=== PATIENT | male | born 1940 | race Caucasian/White ===

== ENCOUNTER 2016-08-05 13:10 | Emergency (ER) | payer MEDICARE, MEDICAID ==
[~2016-08-05] VITALS: Ht 162.6 cm; Wt 70.0 kg
[2016-08-05 13:18] VITALS: Ht 162.6 cm; Wt 70.0 kg
[2016-08-05] MEDS ORDERED: LIDOCAINE 2% (MDV) 20 ML INJ INJ ONE (15:30)
[2016-08-05] MEDS ORDERED: ACETAMINOPHEN 500 MG TAB PO STA (15:34)
[2016-08-05] MEDS ORDERED: ACET500C5 PO (15:39)
[2016-08-05] MEDS ORDERED: SULF1TAB31 PO (15:39)
[2016-08-05] MEDS ORDERED: CEPH-443 PO (15:39)
--- NOTE | 2016-08-05 18:19 | ERD ---
ER Documentation Chief Complaint Date/Time DATE: 08/05/16 TIME: 18:12 Chief Complaint Pt with abscess Jose Miguel chest x 8 days. No fevers. HPI This 75-year-old male who presents to the emergency department today with some pain and swelling and area of infection on the left side of his chest. Patient states it has been like this for the past 8 days. States he saw his primary care doctor and was given mupirocin cream but it has not helped. States there has been some pus drainage. States he has a history of plastic valve replacement in 2015. States that there was some sutures left in that area and patient did return in follow-up to have the sutures removed and then they could not be found. Denies any fevers or chills. ROS All systems reviewed and are negative except as per history of present illness. Medications Home Meds Active Scripts Sulfamethoxazole/Trimethoprim* (Bactrim Ds* Tablet) 1 Each Tablet, 1 TAB PO BID for 7 Days, #14 TAB Prov:SHANTANU BUNN PA-C 08/05/16 Cephalexin* (Keflex*) 500 Mg Capsule, 500 MG PO QID for 7 Days, CAP Prov:SHANTANU BUNN PA-C 08/05/16 Acetaminophen* (Tylophen*) 500 Mg Capsule, 1 CAP PO Q6H Y for PAIN AND OR ELEVATED TEMP, #30 CAP Prov:SHANTANU BUNN PA-C 08/05/16 Reported Medications [None] No Conflict Check 12/08/09 Allergies Allergies: Coded Allergies: No Known Drug Allergies (Verified Allergy, Mild, 12/08/09) PMhx/Soc History of Surgery: No Anesthesia Reaction: No Hx Neurological Disorder: No Hx Psychiatric Problems: No Hx Miscellaneous Medical Probl: No Hx Alcohol Use: No Hx Substance Use: No Hx Tobacco Use: No Smoking Status: Never smoker Physical Exam Vitals Vital Signs Date Time Temp Pulse Resp B/P Pulse Ox O2 Delivery O2 Flow Rate FiO2 08/05/16 13:18 98.3 92 18 111/63 96 Physical Exam Const: NAD Head: Atraumatic Eyes: Normal Conjunctiva ENT: Normal External Ears, Nose and Mouth. Neck: Full range of motion..~ No meningismus. Resp: Clear to auscultation bilaterally Cardio: Regular rate and rhythm, no murmurs Abd: Soft, non tender, non distended. Normal bowel sounds Skin: Large incisional scar over anterior chest. Area of abscess approximately 4 cm with firmness and induration and evidence of crusting. Localized erythema. No warmth. Back: No midline or flank tenderness Ext: No cyanosis, or edema Neur: Awake and alert Psych: Normal Mood and Affect Results 24 hrs Current Medications Medications (Trade) Dose Ordered Sig/Kimberlee Route PRN Reason Start Time Stop Time Status Last Admin Dose Admin Lidocaine (Xylocaine 2% (Mdv) 20 ml) 20 ml ONCE ONCE INJ 08/05/16 15:30 08/05/16 15:31 DC Acetaminophen (Tylenol Tab) 500 mg ONCE STAT PO 08/05/16 15:34 08/05/16 15:35 DC 08/05/16 15:49 Procedures/MDM This is a 75-year-old male who presents the emergency department today for concerns of an abscess on the left side of his chest. On physical exam patient has approximately 4 cm area of firmness and induration with a small area of opening and crusting. Patient is afebrile and otherwise well-appearing. I did explain to the patient that I need to unroofed the area which I did with an 18- gauge needle. The area was prepped in the usual sterile fashion the patient tolerated the procedure well. After removing the crust that was on the patient' s abscess I did apply direct from pressure a moderate amount of purulent drainage was removed. At that time I did take to make a bigger incision with an 11 blade scalpel after the patient was given local anesthesia. Abscess Incision and Drainage with irrigation by me: Location: Left side of chest/abdomen Anesthesia: [Local 1% Lidocaine] 2 cc Technique: [Irrigated. Disrupted loculations w/ instrumentation ] Packing: [None] Complications: [Neurovascularly intact post procedure] 48 hour wound check. Scar minimization instructions given. Patient's skin symptoms have stabilized while they have been evaluated in the department and are appropriate for outpatient care and work up. Patient is afebrile and otherwise well-appearing exam and w/u not consistent w/ sepsis, deep space infection, or foreign body. She was given Tylenol here in the emergency department. He will be given a prescription for home. He was given a prescription for Keflex and Bactrim. At this time the patient is stable for discharge and outpatient management. Patient should follow up with their PCP in the next 1-2 days. They may return to the emergency department sooner for any persistent or worsening of symptoms. Patient understood and agreed with the plan. Discussed the patient with Dr. Andrade and he is in agreement with the plan. Departure Diagnosis: Primary Impression: Abscess Condition: Fair Patient Instructions: Abscess, Incision And Drainage Referrals: Ginny Morrison Additional Instructions: Llame al doctor CINTHYA y adelso isela SHOLA PARA DENTRO DE 1-2 GALVEZ.Dgale a la secretaria que nosotros le instruimos hacer esta shola.Avise o llame si mayo condicin se empeora antes de la shola. Regresa aqui si peor o no mejor. Wound check In 48 hours Take antibiotics as prescribed Take Tylenol or Motrin for pain SHANTANU BUNN PA-C Aug 05, 2016 18:19
== END 2016-08-05 15:55 | disposition home or self-care (01) ==
LOC: FTE 13:10
DX: L02.213 Cutaneous abscess of chest wall (principal)

== ENCOUNTER 2016-08-07 13:08 | Emergency (ER) | payer OTHER ==
[~2016-08-07] VITALS: Ht 157.5 cm; Wt 70.5 kg
[~2016-08-07 13:08] MED LIST: ACET500C5 PO; CEPH-443 PO; SULF1TAB31 PO
[2016-08-07 13:11] VITALS: Ht 157.5 cm; Wt 70.5 kg
--- NOTE | 2016-08-07 14:13 | ERD ---
ER Documentation Chief Complaint Date/Time DATE: 08/07/16 TIME: 14:11 Chief Complaint Recheck abscess top chest wall HPI Patient is a 75-year-old male who is here for a 2 day wound check for an abscess on his chest wall. He is taking the antibiotics as prescribed and he states his pain and symptoms are improving. He has no fever. No other complaints. ROS All systems reviewed and are negative except as per history of present illness. Medications Home Meds Active Scripts Sulfamethoxazole/Trimethoprim* (Bactrim Ds* Tablet) 1 Each Tablet, 1 TAB PO BID for 7 Days, #14 TAB Prov:SHANTANU BUNN PA-C 08/05/16 Cephalexin* (Keflex*) 500 Mg Capsule, 500 MG PO QID for 7 Days, CAP Prov:SHANTANU BUNN PA-C 08/05/16 Acetaminophen* (Tylophen*) 500 Mg Capsule, 1 CAP PO Q6H Y for PAIN AND OR ELEVATED TEMP, #30 CAP Prov:SHANTANU BUNN PA-C 08/05/16 Reported Medications [None] No Conflict Check 12/08/09 Allergies Allergies: Coded Allergies: No Known Drug Allergies (Verified Allergy, Mild, 12/08/09) PMhx/Soc History of Surgery: No Anesthesia Reaction: No Hx Neurological Disorder: No Hx Psychiatric Problems: No Hx Miscellaneous Medical Probl: No Hx Alcohol Use: No Hx Substance Use: No Hx Tobacco Use: No Smoking Status: Never smoker FmHx Family History: diabetes Physical Exam Vitals Vital Signs Date Time Temp Pulse Resp B/P Pulse Ox O2 Delivery O2 Flow Rate FiO2 08/07/16 13:11 98.3 56 20 97/52 98 Physical Exam Const: [] Head: Atraumatic Eyes: Normal Conjunctiva ENT: Normal External Ears, Nose and Mouth. Neck: Full range of motion..~ No meningismus. Resp: Clear to auscultation bilaterally Cardio: Regular rate and rhythm, no murmurs Abd: Soft, non tender, non distended. Normal bowel sounds Skin: Healing abscess on the anterior lower chest wall approximately 2 cm in diameter, no surrounding erythema, no bleeding or drainage Procedures/MDM Patient is here for wound check. Wound is healing appropriately. It was redressed and bandaged here. Recommended he continue to take the antibiotics as prescribed and return if he has any new or worsening symptoms. Recommended this patient follow up with her primary care doctor within 48 hours or return to the emergency room for any worsening of symptoms. However this time I do believe there is suitable for outpatient management. I answered all their questions and they agreed with the plan and were discharged home. Departure Diagnosis: Primary Impression: Visit for wound check Condition: Stable Patient Instructions: Wound Care Additional Instructions: Llame al doctor CINTHYA y adelso isela SHOLA PARA DENTRO DE 1-2 GALVEZ.Dgale a la secretaria que nosotros le instruimos hacer esta shola.Avise o llame si mayo condicin se empeora antes de la shola. Regresa aqui si peor o no mejor. MICHELLE KATZ PA-C Aug 07, 2016 14:13
== END 2016-08-07 14:16 | disposition home or self-care (01) ==
LOC: FTE 13:08
DX: Z48.01 Encounter for change or removal of surgical wound dressing (principal)
CPT/HCPCS: 99281

== ENCOUNTER 2016-08-11 15:29 | Emergency (ER) | payer OTHER ==
[~2016-08-11] VITALS: Ht 152.4 cm; Wt 78.2 kg
[2016-08-11 15:30] VITALS: Ht 152.4 cm; Wt 78.2 kg
--- NOTE | 2016-08-14 08:07 | ERA ---
ER Documentation Chief Complaint Date/Time DATE: 08/14/16 TIME: 08:04 Chief Complaint WOUND CHECK S/P ANCESS UPPER CHEST HPI This is a 75-year-old male status post cardiac surgery on September 12 presenting with a chief complaint of suture sticking out the skin. [place]er-speaking. 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 Patient is currently on antibiotics. Denies any other complications including fever, chills, headache, chest pain, shortness of breath, discharge, continued pain, changes in sensation or skin color, or loss of motion. Previous notes have been reviewed and are consistent with the patient's history given. Patient's tetanus status is up-to-date. ROS All systems reviewed and are negative except as per history of present illness. Medications Home Meds Active Scripts Sulfamethoxazole/Trimethoprim* (Bactrim Ds* Tablet) 1 Each Tablet, 1 TAB PO BID for 7 Days, #14 TAB Prov:SHANTANU BUNN PA-C 08/05/16 Cephalexin* (Keflex*) 500 Mg Capsule, 500 MG PO QID for 7 Days, CAP Prov:SHANTANU BUNN PA-C 08/05/16 Acetaminophen* (Tylophen*) 500 Mg Capsule, 1 CAP PO Q6H Y for PAIN AND OR ELEVATED TEMP, #30 CAP Prov:SHANTANU BUNN PA-C 08/05/16 Reported Medications [None] No Conflict Check 12/08/09 Allergies Allergies: Coded Allergies: No Known Drug Allergies (Verified Allergy, Mild, 12/08/09) PMhx/Soc History of Surgery: No Anesthesia Reaction: No Hx Neurological Disorder: No Hx Psychiatric Problems: No Hx Miscellaneous Medical Probl: No Hx Alcohol Use: No Hx Substance Use: No Hx Tobacco Use: No Physical Exam Vitals Vital Signs Date Time Temp Pulse Resp B/P Pulse Ox O2 Delivery O2 Flow Rate FiO2 08/11/16 15:30 97.7 68 20 127/60 99 Physical Exam Const: Well-appearing 75-year-old male Head: Atraumatic Eyes: Normal Conjunctiva ENT: Normal External Ears, Nose and Mouth. Neck: Full range of motion..~ No meningismus. Resp: Clear to auscultation bilaterally Cardio: Regular rate and rhythm, no murmurs. As noted in skin examination. Abd: Soft, non tender, non distended. Normal bowel sounds Skin: Scar that is appropriately healing from cardiac surgery. Suture that is protruding from chest that protrudes further with expiration. Nontender, no discharge, no induration, no erythema. No petechiae or rashes Back: No midline or flank tenderness Ext: No cyanosis, or edema Neur: Awake and alert Psych: Normal Mood and Affect Procedures/MDM Patient is presenting status post September 12 cardiac surgery. Patient's history is unreliable as his surgery was 1-2 weeks ago and a given was in the future. Have recommended that the patient follow-up with the surgeon for wound evaluation. Patient is currently on antibiotics and shows no signs of infection. Will discharge with discharge instructions return precautions. I have presented the case to my attending who agrees with the assessment and plan. Patient's vitals are stable and his current condition is appropriate for discharge. At this time of little suspicion for infection of the area, bacteremia, sepsis. Patient will be discharged with discharge instructions and return precautions. Patient is verbally responded that he understands and agrees to the plan of management. Departure Diagnosis: Primary Impression: History of heart surgery Additional Impression: Visit for wound check Condition: Stable Patient Instructions: Post Op Wound Check, Pain Additional Instructions: Seguimiento con la realizacin de la atencin mdica del [facility]/[facility] dentro de los prximos 1-2 de jesus para la evaluacin. Contine con los medicamentos y antibiticos ant se prescribe. Si los sntomas cambian o empeoran, regrese inmediatamente al Departamento de emergencias. CAPRI MCKENZIE PA-C Aug 14, 2016 08:07
== END 2016-08-11 15:54 | disposition home or self-care (01) ==
LOC: E/R 15:29
DX: Z48.01 Encounter for change or removal of surgical wound dressing (principal); Z86.79 Personal history of other diseases of the circulatory system
CPT/HCPCS: 99281

== ENCOUNTER 2017-02-25 00:46 | Inpatient (IN) | END 2017-03-10 15:25 | DRG 391 ==